=== PATIENT | male | born 1960 ===

== ENCOUNTER 2023-02-23 06:00 | Outpatient (RCR) | payer BC, SELFPAY | END 2023-02-28 23:59 | disposition home or self-care (01) | LOC: SPT 06:00 | PROVIDERS: Visit Provider Nurse Practitioner Family | DX: M25.552 Pain in left hip (principal) | CPT/HCPCS: 97116; 97140; 97530 ==

== ENCOUNTER 2023-03-01 06:00 | Outpatient (RCR) | payer BC, SELFPAY | END 2023-03-30 23:59 | disposition home or self-care (01) | LOC: SPT 06:00 | PROVIDERS: Visit Provider Nurse Practitioner Family | DX: M25.552 Pain in left hip (principal) | CPT/HCPCS: 97140; 97530 ==